=== PATIENT | female | born 1970 | race Caucasian/White ===

== ENCOUNTER 2016-12-29 22:30 | Observation (INO) | payer BC, OTHER ==
[2016-12-29] MEDS ORDERED: HYDROmorphONE/DILAUDID 1 MG/ML SYR IVP ONE (22:53)
[2016-12-29] MEDS ORDERED: NS 1,000 ML IV ONE (22:53)
[2016-12-29] MEDS ORDERED: PROMETHAZINE HCL 25 MG/ML INJ IVP ONE (22:54)
--- NOTE | 2016-12-29 22:54 | EDPHY ---
H & P Stated Complaint: Umbillical and RLQ with N and V and anorexia x 1.5 days HPI/ROS: HPI CHIEF COMPLAINT: ABDOMINAL PAIN HISTORY OF PRESENT ILLNESS: This patient very pleasant 46-year-old female significant past medical history for depression, surgical history for abdominal hysterectomy, laparoscopic surgery, and right-sided kidney surgery, presents to the emergency room with abdominal pain x2 days. Patient tells me that yesterday she developed abdominal pain is periumbilical and mid abdomen dull ache and now has localized radiated to the right lower quadrant. She is very tender in the right lower quadrant. She has had nausea without vomiting. She tells me she last ate saltine crackers approximately 2-3 hours ago. Had diarrhea yesterday. Denies fever. Tells me the pain is located in the right lower quadrant 6/10. Dull ache. She is concerned about her appendix Past Medical History: Depression Past Surgical History: abdominal hysterectomy, laparoscopic surgery for adhesions, Right Kidney surgery (Ureter Moved) Social History: Denies use of drugs alcohol tobacco products, lives in [place]. Family History: Noncontributory ROS REVIEW OF SYSTEMS: A comprehensive 10 point review of systems is otherwise negative aside from elements mentioned in the history of present illness. Exam Constitutional triage nursing summary reviewed, vital signs reviewed, awake/ alert. Eyes normal conjunctivae and sclera, EOMI, PERRLA. HENT normal inspection, atraumatic, moist mucus membranes, no epistaxis, neck supple/ no meningismus, no raccoon eyes. Respiratory clear to auscultation bilaterally, normal breath sounds, no respiratory distress, no wheezing. Cardiovascular rate normal, regular rhythm, no murmur, no edema, distal pulses normal. Gastrointestinal soft, tender palpation right lower quadrant, no rebound, no guarding, normal bowel sounds, no distension, no pulsatile mass. Genitourinary no CVA tenderness. Musculoskeletal no midline vertebral tenderness, full range of motion, no calf swelling, no tenderness of extremities, no meningismus, good pulses, neurovascularly intact. Skin pink, warm, & dry, no rash, skin atraumatic. Neurologic awake, alert and oriented x 3, AAOx3, moves all 4 extremities equally, motor intact, sensory intact, CN II-XII intact, normal cerebellar, normal vision, normal speech. Psychiatric normal mood/affect. Heme/Lymph/Immune no lymphadenopathy. Differential diagnosis includes but is not limited to and in no particular order : Bowel obstruction, appendicitis, gallbladder disease, diverticulitis, colitis , enteritis, perforated viscus, gastritis, GERD, esophagitis, urinary tract infection, pyelonephritis, kidney stones Medical Decision Making: This patient will have an IV established obtain blood work, she will need a CT scan of her abdomen pelvis with IV contrast to rule out acute appendicitis. She will be medicated with Dilaudid for pain control, Zofran for nausea. Re-evaluation: CT scan of the abdomen pelvis with IV contrast. The results of the study are this shows acute appendicitis, appendix measures 10 mm periappendiceal inflammation. The study was read by Dr. Edge. I viewed the images myself on the PACS system. 0013: Here I did consult Dr. Lunsford in with General surgery/Trauma surgery this patient does have acute appendicitis I have ordered this patient IV Invanz. Patient be evaluated by Dr. Lunsford and most likely go to the OR for appendectomy Source: Patient - Personal History LMP (Females 10-55): Hysterectomy Current Tetanus/Diphtheria Vaccine: Unsure Current Tetanus Diphtheria and Acellular Pertussis (TDAP): Unsure - Medical/Surgical History Hx Asthma: No Hx Diabetes: Yes Hx Cardiac Disease: No Hx Renal Disease: Yes Hx Cirrhosis: No Hx Alcoholism: No Hx HIV/AIDS: No Hx Splenectomy or Spleen Trauma: No Other PMH: endometriosis, hysterectomy, exp laparoscopy, R pyeloplasty - Social History Smoking Status: Former smoker Constitutional: Initial Vital Signs Temperature (C) 36.8 C 12/29/16 22:45 Heart Rate 92 12/29/16 22:45 Respiratory Rate 15 12/29/16 22:45 Blood Pressure 125/75 H 12/29/16 22:45 O2 Sat (%) 93 12/29/16 22:45 O2 Delivery Mode Room Air Allergies/Adverse Reactions: codeine [Codeine] Allergy (Intermediate, Verified 02/04/11 11:53) VOMITS morphine [Morphine] Allergy (Intermediate, Verified 02/04/11 11:53) VOMIT Home Medications: Medication Instructions Recorded LAMICTAL (GREEN) 06/05/10 OXCARBAZEPINE 06/05/10 SYNTHROID 06/05/10 Vits 06/05/10 Escitalopram Oxalate 12/29/16 Medical Decision Making - Data Points Laboratory Results: Laboratory Results 12/29/16 23:05 12/29/16 23:05 12/29/16 12/29/16 23:05 22:36 WBC 6.77 10^3/uL (3.80-9.50) RBC 4.98 10^6/uL (4.18-5.33) Hgb 15.1 g/dL (12.6-16.3) Hct 43.5 % (38.0-47.0) MCV 87.3 fL (81.5-99.8) MCH 30.3 pg (27.9-34.1) MCHC 34.7 g/dL (32.4-36.7) RDW 12.3 % (11.5-15.2) Plt Count 322 10^3/uL (150-400) MPV 9.4 fL (8.7-11.7) Neut % (Auto) 51.3 % (39.3-74.2) Lymph % (Auto) 35.5 % (15.0-45.0) [place] % (Auto) 10.5 % (4.5-13.0) Eos % (Auto) 1.6 % (0.6-7.6) Baso % (Auto) 0.7 % (0.3-1.7) Nucleat RBC Rel Count 0.0 % (0.0-0.2) Absolute Neuts (auto) 3.47 10^3/uL (1.70-6.50) Absolute Lymphs (auto) 2.40 10^3/uL (1.00-3.00) Absolute Monos (auto) 0.71 10^3/uL (0.30-0.80) Absolute Eos (auto) 0.11 10^3/uL (0.03-0.40) Absolute Basos (auto) 0.05 10^3/uL (0.02-0.10) Absolute Nucleated RBC 0.00 10^3/uL (0-0.01) Immature Gran % 0.4 % (0.0-1.1) Immature Gran # 0.03 10^3/uL (0.00-0.10) PT 12.7 SEC (12.0-15.0) INR 0.96 (0.83-1.16) APTT 25.2 SEC (23.0-38.0) Sodium 140 mEq/L (134-144) Potassium 3.9 mEq/L (3.5-5.2) Chloride 105 mEq/L (97-110) Carbon Dioxide 22 mEq/l (22-31) Anion Gap 13 mEq/L (8-16) BUN 11 mg/dL (7-23) Creatinine 0.7 mg/dL (0.6-1.0) Estimated GFR > 60 Glucose 89 mg/dL (70-100) Calcium 9.2 mg/dL (8.5-10.4) Total Bilirubin 0.7 mg/dL (0.1-1.4) Conjugated Bilirubin 0.5 mg/dL (0.0-0.5) Unconjugated Bilirubin 0.2 mg/dL (0.0-1.1) AST 50 H IU/L (14-46) ALT 103 H IU/L (9-52) Alkaline Phosphatase 87 IU/L (38-126) Total Protein 7.6 g/dL (6.3-8.2) Albumin 4.3 g/dL (3.5-5.0) Lipase 153.0 IU/L (23-300) Urine Color YELLOW Urine Appearance HAZY Urine pH 5.0 (5.0-7.5) Ur Specific [place] 1.012 (1.002-1.030) Urine Protein NEGATIVE (NEGATIVE) Urine Ketones NEGATIVE (NEGATIVE) Urine Blood 2+ H (NEGATIVE) Urine Nitrate NEGATIVE (NEGATIVE) Urine Bilirubin NEGATIVE (NEGATIVE) Urine Urobilinogen NEGATIVE EU (0.2-1.0) Ur Leukocyte Esterase 2+ H (NEGATIVE) Urine RBC 10-15 H /hpf (0-3) Urine WBC 15-25 H /hpf (0-3) Ur Epithelial Cells TRACE /lpf (NONE-1+) Urine Bacteria TRACE H /hpf (NONE SEEN) Urine Mucus TRACE /lpf (NONE-1+) Ur Culture Indicated? INDICATED H (NI) Urine Glucose NEGATIVE (NEGATIVE) Medications Given: Discontinued Medications Hydromorphone HCl (Dilaudid) 0.5 mg IVP EDNOW ONE Stop: 12/29/16 22:54 Last Admin: 12/29/16 23:10 Dose: 0.5 mg Sodium Chloride (Ns) 1,000 mls @ 0 mls/hr IV ONCE ONE PRN Reason: Wide Open Stop: 12/29/16 22:54 Last Admin: 12/29/16 23:10 Dose: 1,000 mls Ertapenem 1 gm/ Sodium (Chloride) 100 mls @ 200 mls/hr IV EDNOW ONE PRN Reason: Protocol Stop: 12/30/16 00:40 Last Admin: 12/30/16 00:35 Dose: 100 mls Promethazine HCl (Phenergan Injection) 6.25 mg IVP EDNOW ONE Stop: 12/29/16 22:55 Last Admin: 12/29/16 23:11 Dose: 6.25 mg Departure - Departure Disposition: [facility] Inpatient Acute Clinical Impression: Acute appendicitis Condition: Fair
[2016-12-29 22:58] LABS: COLOR YELLOW; LEUKOCYTE ESTERASE,URINE 2+ (NEGATIVE); NITRITE,URINE NEGATIVE (NEGATIVE)
[2016-12-29 23:07] LABS: BACTERIA TRACE /hpf (NONE SEEN); MUCUS TRACE /lpf (NONE-1+); WBC,URINE 15-25 /hpf (0-3)
[2016-12-29 23:18] LABS: % IMMATURE GRANULYOCYTES 0.4 % (0.0-1.1); ABSOLUTE IMMATURE GRANULOCYTES 0.03 10^3/uL (0.00-0.10); ADD DIFF? NO; ADD MORPH? NO; ADD SCAN? NO; ATYPICAL LYMPHOCYTE FLAG 10 (0-99); FRAGMENT RBC FLAG 0 (0-99); HEMATOCRIT 43.5 % (38.0-47.0); HEMOGLOBIN 15.1 g/dL (12.6-16.3); LEFT SHIFT FLG 0 (0-99); LIPEMIA HEMOLYSIS FLAG 90 (0-99); MEAN CELL HEMOGLOBIN 30.3 pg (27.9-34.1); MEAN CELL HEMOGLOBIN CONCENTR. 34.7 g/dL (32.4-36.7); MEAN CELL VOLUME 87.3 fL (81.5-99.8); MEAN PLATELET VOLUME 9.4 fL (8.7-11.7); PLATELET CLUMPS FLAG 20 (0-99); PLATELET COUNT 322 10^3/uL (150-400); RED BLOOD CELL COUNT 4.98 10^6/uL (4.18-5.33); RED CELL DISTRIBUTION WIDTH 12.3 % (11.5-15.2)
[2016-12-29 23:20] LABS: INR 0.96 (0.83-1.16); PROTIME(PATIENT) 12.7 SEC (12.0-15.0)
[2016-12-29 23:21] LABS: APTT 25.2 SEC (23.0-38.0)
[2016-12-29] MEDS ORDERED: IOPAMIDOL (ISOVUE-300) 100 ML BTL IV ONE (23:34)
[2016-12-29 23:49] LABS: ALANINE AMINOTRANSFERASE 103 IU/L (9-52); ALBUMIN 4.3 g/dL (3.5-5.0); ANION GAP 13 mEq/L (8-16); ASPARTATE AMINOTRANSFERASE 50 IU/L (14-46); BILIRUBIN,TOTAL 0.7 mg/dL (0.1-1.4); BILIRUBIN-CONJUGATED 0.5 mg/dL (0.0-0.5); BILIRUBIN-UNCONJUGATED 0.2 mg/dL (0.0-1.1); CALCIUM 9.2 mg/dL (8.5-10.4); CARBON DIOXIDE 22 mEq/l (22-31); CHLORIDE 105 mEq/L (97-110); CREATININE 0.7 mg/dL (0.6-1.0); GLOMERULAR FILTRATION RATE > 60; GLUCOSE 89 mg/dL (70-100); POTASSIUM 3.9 mEq/L (3.5-5.2); SODIUM 140 mEq/L (134-144); TOTAL PROTEIN 7.6 g/dL (6.3-8.2)
[2016-12-29 23:53] LABS: ALKALINE PHOSPHATASE 87 IU/L (38-126)
[2016-12-30] MEDS ORDERED: ERTAPENEM 1 GM in NS 100 ML IV ONE (00:11)
[2016-12-30] MEDS ORDERED: BUPIVACAINE 0.5% 30 ML SDV ONE (00:30)
[2016-12-30] MEDS ORDERED: SKIN ADHESIVE (DERMABOND) 1 EACH TP ONE (00:30)
--- NOTE | 2016-12-30 00:31 | CT ---
CT Abdomen and Pelvis With Contrast History: Right lower quadrant pain. Comparison: Abdominal ultrasound June 08, 2016, CT abdomen pelvis October 06, 2009. Technique: Axial contrast-enhanced images were obtained through the abdomen and pelvis following the uneventful administration of 90 mL Isovue-300 intravenous contrast. Dose reduction techniques were ut ilized. Findings: Abdomen: The lung bases are clear. Heart size is normal. Minimal principally left intrahepatic biliary dilatation is unchanged since 2008. The gallbladder, sp yuki, pancreas, and right adrenal gland are normal. Benign left adrenal nodule is unchanged since 200 9. Prominent extrarenal pelves are again noted. Moderate stool is present in the colon. The colon and small bowel are normal caliber without evidence of obstruction. The appendix is hyperemic and enlarged distally measuring 10 mm (series 4 image 179) , with mild periappendiceal inflammation and fluid. The appendix arises from the posterior aspect of the cecum and extends inferiorly to the pelvis. There is no free air or abscess. The aorta is normal caliber . The IVC, hepatic, portal, splenic, and superior mesenteric veins are pa tent. No pathologically enlarged lymph nodes are identified. The bones are unremarkable. Pelvis: The bladder is normal. The uterus is surgically absent. No adnexal masses are present. No aggressive osseous lesions are identified. Impression: 1. Acute appendicitis. 2. Constipation. 3. Additional findings as above. Findings discussed with Jason Siu today at 0008 hours.
[2016-12-30] MEDS ORDERED: HYDROCODONE/APAP 5/325 TAB PO PRN (00:46)
[2016-12-30] MEDS ORDERED: ONDANSETRON 4 MG/2 ML VIAL IVP PRN (00:46)
[2016-12-30] MEDS ORDERED: ACETAMINOPHEN 325 MG TAB PO PRN (00:46)
[2016-12-30] MEDS ORDERED: fentaNYL 100 MCG/2 ML INJ ONE (00:48)
[2016-12-30] MEDS ORDERED: PROPOFOL 200 MG/20 ML VIAL ONE ×2 (00:48)
--- NOTE | 2016-12-30 00:48 | POSTOPPROG ---
Post Op Note Date of Operation: 12/30/16 Surgeon: Jenny Lunsford Anesthesiologist: logan Anesthesia: GET(General Endotracheal) Pre-op Diagnosis: acute appendicitis Post-op Diagnosis: same Indication: 46 with acute appy Procedure: lap appy Findings: adhesions, inflamed appendix Inf/Abcess present in the surg proc area at time of surgery?: No EBL: Minimal Specimen(s): appendix
[2016-12-30] MEDS ORDERED: MIDAZOLAM 2 MG/2 ML VIAL ONE (00:59)
[2016-12-30] MEDS ORDERED: SCOPOLAMINE HYDROBROMIDE 1.5 MG PATCH TD ONE (00:59)
[2016-12-30] MEDS ORDERED: SCOPOLAMINE HYDROBROMIDE 1.5 MG PATCH TD SCH (01:00)
[2016-12-30] MEDS ORDERED: D5W 1/2 NS W/ 20 KCl/L 1,000 ML IV SCH (01:00)
[2016-12-30] MEDS ORDERED: LIDOCAINE 1% 5 ML SDV ONE (01:05)
--- NOTE | 2016-12-30 01:05 | GHP ---
[f rep st] HISTORY AND PHYSICAL DATE OF ADMISSION: 12/30/2016 DATE OF EVALUATION: 12/30/2016 CHIEF COMPLAINT: Acute appendicitis. HISTORY OF PRESENT ILLNESS: The patient is a 46-year-old woman who developed periumbilical pain 2 da ys prior to admission. The pain worsened. She had emesis with associated fevers. She has decreased appetite. The pain localized to the right lower quadrant, and she presented to the ER. Her white b lood cell count is normal. Her CT scan shows acute appendicitis. PAST MEDICAL HISTORY: Depression, knee pain, hypothyroidism. PAST SURGICAL HISTORY: Pyeloplasty, hernia repair, hysterectomy, meniscectomy, lumpectomy, diagnosti c laparoscopy. ALLERGIES: Codeine, morphine. MEDICATIONS: Oxcarbazepine, Lamictal, trazodone, escitalopram, and Synthroid. SOCIAL HISTORY: She is with 2 children. She denies tobacco or recreational drug use. She d rinks 1 alcoholic beverage a day. FAMILY HISTORY: Significant for stroke in her mother, hyperlipidemia, hypertension, diabetes, blood clots, and cancer. REVIEW OF SYSTEMS: As above. Otherwise, 10-point review of systems negative. PHYSICAL EXAM: GENERAL: Pleasant, obese woman sitting in gurney. at bedside. She is well groomed. HEENT: Normocephalic. No gross hearing deficits. Mucous membranes moist. Pupils equal a nd round. No scleral icterus. LUNGS: Clear to auscultation bilaterally. No increased work of rogelio thing. CARDIAC: Regular rate. ABDOMEN: She is tender in the right lower quadrant. Negative Rovsi ng sign. Bowel sounds present. She is soft. Well healed incisions. SKIN: No obvious rashes. IMPRESSION AND PLAN: The patient is a 46-year-old with acute appendicitis. I will take her to the o perating room for an appendectomy. The risks and benefits, including, but not limited to, stroke, he art attack, , blood clots, infection, bleeding, damage to surrounding structures, were discussed . She is receiving Invanz in the ER. She had her questions answered to her satisfaction and signed the informed consent. /[id number]/MODL
[2016-12-30] MEDS ORDERED: KETOROLAC 30 MG/1 ML SDV ONE (01:17)
[2016-12-30] MEDS ORDERED: NEOSTIGMINE METHYLSULFATE 5 MG/5 ML SYR ONE (01:17)
[2016-12-30] MEDS ORDERED: ROCURONIUM 50 MG/5 ML VIAL ONE (01:17)
[2016-12-30] MEDS ORDERED: GLYCOPYRROLATE 0.2 MG/1 ML VIAL ONE ×2 (01:17)
[2016-12-30] MEDS ORDERED: DEXAMETHASONE 4 MG/ML VIAL ONE (01:17)
[2016-12-30] MEDS ORDERED: ONDANSETRON 4 MG/2 ML VIAL ONE (01:17)
[2016-12-30] MEDS ORDERED: SUGAMMADEX SODIUM 200 MG/2 ML VIAL IVP ONE (01:53)
--- NOTE | 2016-12-30 04:15 | GOP ---
[f rep st] OPERATIVE REPORT DATE OF OPERATION: 12/30/2016 SURGEON: Jenny Lunsford MD ANESTHESIA: Bettye Loja MD/general. PREOPERATIVE DIAGNOSIS: Acute appendicitis. POSTOPERATIVE DIAGNOSIS: Acute appendicitis. PROCEDURE PERFORMED: Laparoscopic appendectomy. FINDINGS: Inflamed appendix, laparoscopic lysis of adhesions, and adhesions in the right lower quadrant. ESTIMATED BLOOD LOSS: 5 cc. INDICATIONS: The patient is a 46-year-old woman, with abdominal pain and CT diagnosed appendicitis. DESCRIPTION OF PROCEDURE: The patient was brought into the operating room, placed supine on the table, and general anesthesia was administered. Her abdomen was prepped and draped in the usual sterile fashion. I infiltrated all sites with 0.5% Marcaine prior to making incisions. I made an incision at her umbilicus. I elevated it and I inserted the Veress needle. It passed the hanging drop test. Her abdomen insufflated easily to a pressure of 15 mmHg. I placed a 5 mm trocar with a camera at this site. She had adhesions in the right lower quadrant. I placed a 5 mm suprapubic trocar and a 10 mm trocar in the left lower quadrant. I used the Harmonic to lyse the omentum from the abdominal wall. I then could identify the appendix. I grasped the tip and divided the mesoappendix with the Harmonic Scalpel. I divided the base with an Endo-AMEE 35 white load, placed it in an EndoCatch bag and retrieved it via the 10 mm trocar. The abdomen was inspected. Hemostasis was achieved. I attempted multiple attempts to close the fascia at the 10 mm trocar site, but could not get a good grasp of the fascia. The trocar was inserted in a Z-line fashion, and although I could feel the fascial edges my finger did not easily penetrate into the abdominal cavity. I considered using a fascial closure device but the other ports were too close. I closed all skin with 4-0 Monocryl. Dermabond applied. She was awakened in the operating room, extubated , transferred to PACU in stable condition. /[id number]/MODL MTDD
[2016-12-30 07:47] VITALS: BP 120/63; PULSE 71; RESP 14; TEMP 97.9; O2SAT 93
--- NOTE | 2016-12-30 10:26 | SOAPPROG ---
SOAP Progress Note Assessment/Plan: Assessment: 46-year-old female admitted with acute appendicitis, postop day 1. Status post laparoscopic appendectomy Tolerating regular diet Pain controlled Return of bowel function Dispo: seen with Dr. Lunsford. Discharge to home. Follow up with Dr. Lunsford or Sindi HOLCOMB in 1-2 weeks. Avoid heavy lifting, pushing or pulling greater than 10 lb x2 weeks. S: Healing well, pain resolved. Tolerating regular diet O: lying in bed, comfortable, NAD, at bedside No increased work of breathing abdomen soft, non tender, nondistended. Incisions clean, dry and intact with surrounding ecchymosis of left lower quadrant incision. Objective: Vital Signs Temp Pulse Resp BP Pulse Ox 36.6 C 71 14 120/63 93 12/30/16 07:44 12/30/16 07:44 12/30/16 07:44 12/30/16 07:44 12/30/16 07:44 12/29/16 12/30/16 12/31/16 05:59 05:59 05:59 Intake Total 2049 367 Output Total 10 Balance 2039 367 PT 12.7 SEC (12.0-15.0) 12/29/16 23:05 INR 0.96 (0.83-1.16) 12/29/16 23:05 ICD10 Worksheet Patient Problems: Problems Problem Status Diagnosed Acute appendicitis Acute
[2017-01-02] MEDS ORDERED: PATCH REMOVAL 1 EA PATCH TD SCH (00:45)
--- NOTE | 2017-01-08 15:46 | GPROG ---
[f rep st] PROGRESS NOTE POST ANESTHESIA NOTE HISTORY OF PRESENT ILLNESS: The patient had an emergency laparoscopic appendectomy. The surgery pro ceeded uneventful. She was woken up in the operating room, stable, and she was transported to the re covery room. In the recovery room, her vital signs were blood pressure 130/80, with a heart rate of 91, respiratory rate 16, oxygen saturation 98, temperature 36.4. She was stable, awake, alert, orien antwon. She denied pain or nausea. No apparent anesthesia complication. /[id number]/MODL
== END 2016-12-30 10:16 | disposition home or self-care (01) ==
LOC: INTOOBSV 12-30 00:14 → F3E 12-30 02:35
PROVIDERS: ADMIT Surgery; ATTEND Surgery
PROC: 0DTJ8ZZ Resection of Appendix, Via Natural or Artificial Opening Endoscopic (ICD-10-PCS; principal; 2016-12-30 00:30)
DX: K35.80 Unspecified acute appendicitis (principal); F32.9 Major depressive disorder, single episode, unspecified; E03.9 Hypothyroidism, unspecified; E66.9 Obesity, unspecified
CPT/HCPCS: 44970; 74177; 96361; 96374; 96375; 99285; G0378; J1100; J1170; J1335; J1885; J2250; J2405; J2550; J2704; J2710; J3010; Q9967

== ENCOUNTER → 2017-02-15 | Outpatient (CLI) | payer OTHER | LOC: FIMAGING 11:38 | DX: Z12.31 Encounter for screening mammogram for malignant neoplasm of breast (principal); Z85.3 Personal history of malignant neoplasm of breast | CPT/HCPCS: G0202 ==

== ENCOUNTER → 2018-02-16 | Outpatient (CLI) | payer OTHER | LOC: FIMAGING 10:46 | PROVIDERS: ATTEND Internal Medicine Hematology & Oncology | DX: Z12.31 Encounter for screening mammogram for malignant neoplasm of breast (principal); Z85.3 Personal history of malignant neoplasm of breast ==

== ENCOUNTER → 2019-02-19 | Outpatient (CLI) | payer BC | LOC: FIMAGING 10:41 | PROVIDERS: ATTEND Internal Medicine Hematology & Oncology | DX: Z12.31 Encounter for screening mammogram for malignant neoplasm of breast (principal); Z85.3 Personal history of malignant neoplasm of breast; Z80.3 Family history of malignant neoplasm of breast ==